=== PATIENT | female | born 1985 | race Caucasian/White ===

== ENCOUNTER 2018-02-16 23:59 | Emergency (ER) | payer BC ==
[~2018-02-16] VITALS: Ht 172.7 cm; Wt 104.3 kg
[2018-02-17] MEDS ORDERED: Acetaminophen 500mg (ES) tab ORAL ONE (01:15)
--- NOTE | 2018-02-17 01:16 | Emergency Room Report ---
History of Present Illness General Chief Complaint: Lower Back Pain or Injury Source: Patient Present Illness HPI Is a 32-year-old female who is 12 weeks . She presents with dysuria frequency and left flank pain. No nausea no vomiting. No fever. No vaginal bleeding. Pain is 7 out of 10. Worse with urination. Never had this problem before. She arty had follow-up with OB an ultrasound done already. Allergies: Coded Allergies: PENICILLINS (Verified Allergy, Unknown, 02/17/18) Patient History Past Medical History: see triage record, old chart reviewed Past Surgical History: none Pertinent Family History: none Social History: Reports: smoking Last Menstrual Period: 4months ago Now: Yes : 4 Para: 4 Immunizations: other Reviewed Nursing Documentation: PMH: Agreed; PSxH: Agreed Nursing Documentation-PM Past Medical History: No Stated History Review of Systems Eye: Denies: eye pain, blurred vision ENT: Denies: ear pain, nose congestion, throat swelling Respiratory: Denies: cough, shortness of breath Cardiovascular: Denies: chest pain, palpitations Gastrointestinal: Denies: abdominal pain, diarrhea, nausea, vomiting Genitourinary: Reports: frequency, pain Musculoskeletal: Denies: back pain, joint pain Skin: Denies: rash Neurological: Denies: headache, numbness Endocrine: Denies: increased thirst, increased urine Hematologic/Lymphatic: Denies: easy bruising All Other Systems: negative except mentioned in HPI Physical Exam Vital Signs Date Time Temp Pulse Resp B/P (MAP) Pulse Ox O2 Delivery O2 Flow Rate FiO2 02/17/18 00:29 98.4 77 18 124/72 98 Room Air 98.4 vitals normal Sp02 EP Interpretation: reviewed, normal General Appearance: well appearing, no apparent distress, alert Head: normocephalic, atraumatic Eyes: bilateral eye PERRL, bilateral eye EOMI ENT: hearing grossly normal, normal pharynx Neck: full range of motion, supple, no meningismus Respiratory: chest non-tender, lungs clear, normal breath sounds Cardiovascular #1: regular rate, rhythm, no murmur Gastrointestinal: normal bowel sounds, non tender, no mass, no organomegaly, no bruit, non-distended Musculoskeletal: back normal, gait/station normal, normal range of motion Psychiatric: mood/affect normal Skin: warm/dry Medical Decision Making Diagnostic Impression: Primary Impression: Low back pain Qualified Codes: M54.5 - Low back pain ER Course Patient with back pain. No evidence of infection. No evidence of ectopic. My bedside ultrasound show viable IUP with good movement and heart tone. Last Vital Signs Date Time Temp Pulse Resp B/P (MAP) Pulse Ox O2 Delivery O2 Flow Rate FiO2 02/17/18 00:29 98.4 77 18 124/72 98 Room Air 98.4 Status: improved Disposition: HOME, SELF-CARE Condition: Stable Patient Instructions: Back Pain, Adult Additional Instructions: Follow-up with your [facility] in a week. Return if symptom worsen. IGOR EDUARDO M.D. Feb 17, 2018 01:16
[2018-02-17 01:17] LABS: BILIRUBIN, URINE NEGATIVE (NEGATIVE); COLOR,URINE PALE YELLOW; GLUCOSE, URINE (UA) NEGATIVE (NEGATIVE); KETONES,URINE NEGATIVE (NEGATIVE); LEUKOCYTE ESTERASE ,URINE NEGATIVE (NEGATIVE); NITRITE,URINE NEGATIVE (NEGATIVE); PH,URINE 7 (4.5-8.0); PROTEIN,URINE NEGATIVE (NEGATIVE); UROBILINOGEN,URINE NORMAL MG/DL (0.0-1.0)
[2018-02-17 01:18] LABS: APPEARANCE,URINE CLEAR
[2018-02-17 01:43] VITALS: BP 0/0
== END 2018-02-17 02:00 | disposition home or self-care (01) ==
LOC: EMR 02-17 01:58
DX: M54.5 Low back pain (principal); R30.0 Dysuria; R35.0 Frequency of micturition; R10.9 Unspecified abdominal pain; Z88.0 Allergy status to penicillin
CPT/HCPCS: 81003; 99283